=== PATIENT | female | born 1970 | race Caucasian/White ===

== ENCOUNTER → 2017-07-04 | Outpatient (CLI) | payer OTHER | LOC: ULTRA 14:34 | DX: N63.10 Unspecified lump in the right breast, unspecified quadrant (principal); N63.20 Unspecified lump in the left breast, unspecified quadrant ==

== ENCOUNTER → 2018-10-25 | Outpatient (CLI) | payer OTHER | LOC: RAD 00:21 | DX: Z12.31 Encounter for screening mammogram for malignant neoplasm of breast (principal) ==